=== PATIENT | female | born 1980 | race African-American/Black ===

== ENCOUNTER 2016-06-29 21:33 | Emergency (ER) | payer MEDICARE ==
[~2016-06-29] VITALS: Ht 160 cm; Wt 109.4 kg
[~2016-06-29 21:33] MED LIST: ACETTAB3 OR; BENADRYL25 MG OR; BISAC-EVAC10 MG RE; BUSPAR5 MG PO; CELEXA20 M1 OR; CELEXA40 M1 OR; CEPHALEXIN500 M1 OR; CIPRO500 MG OR; CIPROFLOXACN500 MG PO; CLARITHROMYC500 M2 PO; COLACE100 MG OR; CYCLOBENZAPR10 MG PO; E.E.S. 400400 MG OR; FIORICET PO; FLEXERIL PO; FUROSEMIDE20 MG OR; GEODON80 MG OR; HALDOL5 MG; HALDOL5 MG OR; K-DUR/KLOR-CON10 ME1 OR; KEFLEX500 MG OR; KLOR-CON 1010 ME1 OR; LAMICTAL100 M1 PO; LAMOTRIGINE25 M1 PO; LASIX20 MG OR; LORTAB 10 OR; LORTAB 5 OR; LORTAB5 PO; LOVENOX 4040 MG/0.4 SC; MACROBID100 MG OR; METFORMIN500 MG PO; MILK OF MAG2 OR; MIRTAZAPINE15 MG PO; NAPROSYN500 MG PO; NUCYNTA75 MG OR; PAROXETINE20 MG PO; PEPCID20 MG OR; PERCOCET 5/325M1 TAB OR; PRAVASTATIN SOD20 MG PO; PREVACID30 M3 PO; PRILOSEC OTC20 MG OR; PYRIDIUM200 MG OR; RISPERDAL0.5 MG PO; TORADOL OR; TORADOL PO; TRAZODONE100 MG OR; TRILEPTAL300 M1 OR; ULTRAM50 M1 PO; ULTRAM50 MG OR; ULTRAM50 MG PO; ZOFRAN ODT8 MG PO; ZOFRAN ODT8 MG SL; [UNRECOGNIZED DRUG - CODE] OR
[2016-06-29 22:33] LABS: URINE BILIRUBIN - DIPSTICK NEGATIVE (NEGATIVE); URINE BLOOD DIPSTICK TRACE-INTACT (NEGATIVE); URINE CLARITY CLEAR; URINE COLOR YELLOW; URINE GLUCOSE - DIPSTICK NEGATIVE (NEGATIVE); URINE KETONE NEGATIVE (NEGATIVE); URINE LEUK ESTERASE NEGATIVE (NEGATIVE); URINE NITRITE - DIPSTICK NEGATIVE (Negative); URINE PH 5.5 (4.5-8.0); URINE PROTEIN - DIPSTICK NEGATIVE (NEG-TRACE); URINE SPECIFIC GRAVITY 1.025
[2016-06-29 22:38] LABS: HEMATOCRIT 35.6 % (37.0-47.0); HEMOGLOBIN 12.5 g/dl (12.0-16.0); IMMATURE GRANULOCYTES 0.4 % (0.0-1.0); MEAN CELL VOLUME 70.1 fL CALC (80.0-100.0); MEAN CORPUSCULAR HGB 24.6 pG CALC (26.0-32.0); MEAN CORPUSCULAR HGB CONC 35.1 g/L CALC (32.0-36.0); NEUT# 10.36 thou/uL (2.00-7.15); RED BLOOD COUNT 5.08 mill/uL (4.20-5.60); RED CELL DISTRI WIDTH 15.2 % (11.5-15.5)
[2016-06-29 23:00] LABS: ALBUMIN 4.4 g/dL (3.2-5.0); ALKALINE PHOSPHATASE 128 u/l (38-126); AMYLASE 70 u/l (30-110); ANION GAP 19 (6-22 (CALC)); BILIRUBIN, TOTAL 0.5 mg/dL (0.0-1.4); BUN 10 mg/dL (7-17); BUN/CREATININE RATIO 13 (12-20 (CALC)); CALCIUM 9.2 mg/dL (8.4-10.2); CARBON DIOXIDE 24 mmol/l (22-30); CHLORIDE 102 mmol/l (95-108); CREATININE 0.8 mg/dL (0.5-1.0); GFR > 60 ML/MIN (>=60 (CALC)); GFR FOR AFR.AMER. > 60 ML/MIN (>=60 (CALC)); GLUCOSE 118 mg/dL (65-105); LIPASE 98 u/l (23-300); POTASSIUM 4.3 mmol/l (3.5-5.1); SGOT/AST 19 u/l (14-36); SGPT/ALT 21 u/l (9-52); SODIUM 140 mmol/l (137-146); TOTAL PROTEIN 8.8 g/dL (6.3-8.2)
[2016-06-30 00:50] VITALS: BP 132/77
[2016-06-30] MEDS ORDERED: TORADOL PO (01:40)
== END 2016-06-30 02:05 | disposition home or self-care (01) ==
LOC: ED 21:33
PROVIDERS: Emergency Medicine
DX: G89.29 Other chronic pain (principal); F32.9 Major depressive disorder, single episode, unspecified
CPT/HCPCS: Q9967

== ENCOUNTER 2017-04-01 18:10 | Emergency (ER) | payer MEDICARE ==
[~2017-04-01] VITALS: Ht 160 cm; Wt 106.8 kg
[2017-04-01] MEDS ORDERED: LISINOPRIL5 MG PO (18:19)
[2017-04-01 18:44] LABS: HEMATOCRIT 37.1 % (37.0-47.0); HEMOGLOBIN 12.7 g/dl (12.0-16.0); IMMATURE GRANULOCYTES 0.5 % (0.0-1.0); MEAN CELL VOLUME 72.6 fL CALC (80.0-100.0); MEAN CORPUSCULAR HGB 24.9 pG CALC (26.0-32.0); MEAN CORPUSCULAR HGB CONC 34.2 g/L CALC (32.0-36.0); NEUT# 10.74 thou/uL (2.00-7.15); RED BLOOD COUNT 5.11 mill/uL (4.20-5.60); RED CELL DISTRI WIDTH 14.8 % (11.5-15.5)
[2017-04-01 18:48] LABS: BARBITURATES NEGATIVE (NEGATIVE); COCAINE NEGATIVE (NEGATIVE); METHADONE NEGATIVE (NEGATIVE); OXCYCODONE NEGATIVE (NEGATIVE); TETRAHYDROCANNABIONOL NEGATIVE (NEGATIVE); TRICYLIC ANTIDEPRESSANTS NEGATIVE (NEGATIVE); URINE BILIRUBIN - DIPSTICK NEGATIVE (NEGATIVE); URINE BLOOD DIPSTICK NEGATIVE (NEGATIVE); URINE CLARITY CLEAR; URINE COLOR YELLOW; URINE GLUCOSE - DIPSTICK NEGATIVE (NEGATIVE); URINE KETONE NEGATIVE (NEGATIVE); URINE LEUK ESTERASE NEGATIVE (NEGATIVE); URINE NITRITE - DIPSTICK NEGATIVE (Negative); URINE PROTEIN - DIPSTICK NEGATIVE (NEG-TRACE); URINE SPECIFIC GRAVITY >=1.030; URINE UROBILINOGEN - DIPSTICK 0.2 E.U./dL (0.2)
[2017-04-01 19:00] LABS: ALBUMIN 4.6 g/dL (3.2-5.0); ALKALINE PHOSPHATASE 145 u/l (38-126); ANION GAP 18 (6-22 (CALC)); BILIRUBIN, TOTAL 0.4 mg/dL (0.0-1.4); BUN 16 mg/dL (7-17); BUN/CREATININE RATIO 22 (12-20 (CALC)); CALCIUM 9.9 mg/dL (8.4-10.2); CARBON DIOXIDE 22 mmol/l (22-30); CHLORIDE 108 mmol/l (95-108); CREATININE 0.7 mg/dL (0.5-1.0); GFR > 60 ML/MIN (>=60 (CALC)); GFR FOR AFR.AMER. > 60 ML/MIN (>=60 (CALC)); GLUCOSE 120 mg/dL (65-105); LIPASE 141 u/l (23-300); POTASSIUM 4.3 mmol/l (3.5-5.1); SGOT/AST 14 u/l (14-36); SGPT/ALT 24 u/l (9-52); SODIUM 144 mmol/l (137-146); TOTAL PROTEIN 8.2 g/dL (6.3-8.2)
[2017-04-01] MEDS ORDERED: METRONIDAZOL500 MG PO (19:03)
[2017-04-01] MEDS ORDERED: TETRACYCLINE H250 MG PO (19:03)
[2017-04-01] MEDS ORDERED: BENTYL20 MG PO (20:22)
[2017-04-01] MEDS ORDERED: TORADOL PO (20:22)
[2017-04-01 20:39] VITALS: BP 148/78
== END 2017-04-01 20:41 | disposition home or self-care (01) ==
LOC: ED 18:10
PROVIDERS: Emergency Medicine
DX: R10.33 Periumbilical pain (principal); R10.30 Lower abdominal pain, unspecified; R50.9 Fever, unspecified; G89.29 Other chronic pain

== ENCOUNTER 2017-07-19 21:11 | Emergency (ER) | payer MEDICARE ==
[~2017-07-19] VITALS: Ht 160 cm; Wt 100.2 kg
[~2017-07-19 21:11] MED LIST changes: +BENTYL20 MG PO; +LISINOPRIL5 MG PO; +METRONIDAZOL500 MG PO; +TETRACYCLINE H250 MG PO
[2017-07-19 22:19] LABS: URINE BILIRUBIN - DIPSTICK NEGATIVE (NEGATIVE); URINE BLOOD DIPSTICK NEGATIVE (NEGATIVE); URINE COLOR YELLOW; URINE GLUCOSE - DIPSTICK NEGATIVE (NEGATIVE); URINE KETONE NEGATIVE (NEGATIVE); URINE NITRITE - DIPSTICK NEGATIVE (Negative); URINE PH 6.5 (4.5-8.0); URINE PROTEIN - DIPSTICK 30 mg/dL (NEG-TRACE); URINE SPECIFIC GRAVITY >=1.030; URINE UROBILINOGEN - DIPSTICK 0.2 E.U./dL (0.2)
[2017-07-19 22:20] LABS: URINE CLARITY SL CLOUDY; URINE LEUK ESTERASE MODERATE (NEGATIVE)
[2017-07-19 22:22] LABS: URINE RBC 0-2 RBC/hpf (0-5); URINE SQUAMOUS EPITHELIAL CELL MODERATE EPI/hpf (0-FEW)
[2017-07-19] MEDS ORDERED: MACROBID100 MG PO (23:28)
[2017-07-20 00:44] VITALS: BP 141/89
== END 2017-07-20 00:47 | disposition home or self-care (01) ==
LOC: ED 21:11
PROVIDERS: Family Medicine
DX: R10.31 Right lower quadrant pain (principal); Z33.1 Pregnant state, incidental; R50.9 Fever, unspecified; R11.0 Nausea

== ENCOUNTER 2017-10-18 14:56 | Emergency (ER) | payer MEDICARE, MEDICAID ==
[~2017-10-18] VITALS: Ht 160 cm; Wt 85.0 kg
[~2017-10-18 14:56] MED LIST changes: +MACROBID100 MG PO
[2017-10-18 15:53] LABS: HEMOGLOBIN 12.2 g/dl (12.0-16.0); IMMATURE GRANULOCYTES 0.4 % (0.0-1.0); MEAN CELL VOLUME 73.5 fL CALC (80.0-100.0); MEAN CORPUSCULAR HGB 25.6 pG CALC (26.0-32.0); MEAN CORPUSCULAR HGB CONC 34.9 g/L CALC (32.0-36.0); NEUT# 7.39 thou/uL (2.00-7.15); RED BLOOD COUNT 4.76 mill/uL (4.20-5.60); RED CELL DISTRI WIDTH 14.8 % (11.5-15.5)
[2017-10-18 16:11] LABS: ALBUMIN 3.8 g/dL (3.2-5.0); ALKALINE PHOSPHATASE 112 u/l (38-126); ANION GAP 12 (6-22 (CALC)); BILIRUBIN, TOTAL 0.4 mg/dL (0.0-1.4); BUN 8 mg/dL (7-17); BUN/CREATININE RATIO 13 (12-20 (CALC)); CARBON DIOXIDE 25 mmol/l (22-30); CHLORIDE 107 mmol/l (95-108); CREATININE 0.7 mg/dL (0.5-1.0); GFR > 60 ML/MIN (>=60 (CALC)); GFR FOR AFR.AMER. > 60 ML/MIN (>=60 (CALC)); POTASSIUM 3.9 mmol/l (3.5-5.1); SGOT/AST 11 u/l (14-36); SGPT/ALT 23 u/l (9-52); SODIUM 140 mmol/l (137-146); TOTAL PROTEIN 7.3 g/dL (6.3-8.2)
[2017-10-18 16:34] LABS: PROTHROMBIN TIME 11.1 SECONDS (9.0-12.5)
[2017-10-18 16:43] LABS: URINE BLOOD DIPSTICK SMALL (NEGATIVE); URINE COLOR YELLOW; URINE GLUCOSE - DIPSTICK NEGATIVE (NEGATIVE); URINE KETONE NEGATIVE (NEGATIVE); URINE LEUK ESTERASE TRACE (NEGATIVE); URINE PH 6.5 (4.5-8.0); URINE PROTEIN - DIPSTICK TRACE mg/dL (NEG-TRACE); URINE SPECIFIC GRAVITY 1.025; URINE UROBILINOGEN - DIPSTICK >=8.0 E.U./dL (0.2)
[2017-10-18 16:44] LABS: URINE BILIRUBIN - DIPSTICK NEGATIVE (NEGATIVE); URINE CLARITY HAZY; URINE NITRITE - DIPSTICK POSITIVE (Negative)
[2017-10-18 16:46] LABS: BARBITURATES NEGATIVE (NEGATIVE); COCAINE POSITIVE (NEGATIVE); METHADONE NEGATIVE (NEGATIVE); OXCYCODONE NEGATIVE (NEGATIVE); TETRAHYDROCANNABIONOL POSITIVE (NEGATIVE); TRICYLIC ANTIDEPRESSANTS NEGATIVE (NEGATIVE)
[2017-10-18 16:52] LABS: URINE BACTERIA MANY hpf; URINE SQUAMOUS EPITHELIAL CELL FEW EPI/hpf (0-FEW)
[2017-10-18] MEDS ORDERED: BACTRIM DS1 TAB PO (16:56)
[2017-10-18] MEDS ORDERED: TORADOL PO (16:56)
[2017-10-18 17:18] VITALS: BP 151/80
== END 2017-10-18 17:23 | disposition home or self-care (01) ==
LOC: ED 14:56
PROVIDERS: Emergency Medicine
DX: F41.9 Anxiety disorder, unspecified (principal); N39.0 Urinary tract infection, site not specified; B96.20 Unspecified Escherichia coli [E. coli] as the cause of diseases classified elsewhere; F14.10 Cocaine abuse, uncomplicated; F15.10 Other stimulant abuse, uncomplicated

== ENCOUNTER 2018-08-31 05:41 | Emergency (ER) | payer MEDICARE, MEDICAID ==
[~2018-08-31] VITALS: Ht 160 cm; Wt 100.0 kg
[~2018-08-31 05:41] MED LIST changes: +BACTRIM DS1 TAB PO
[2018-08-31] MEDS ORDERED: NEURONTIN300 MG PO (06:00)
[2018-08-31 06:31] LABS: HEMATOCRIT 37.4 % (37.0-47.0); HEMOGLOBIN 12.8 g/dl (12.0-16.0); IMMATURE GRANULOCYTES 0.5 % (0.0-5.0); MEAN CELL VOLUME 74.4 fL CALC (80.0-100.0); MEAN CORPUSCULAR HGB 25.4 pG CALC (26.0-32.0); MEAN CORPUSCULAR HGB CONC 34.2 g/L CALC (32.0-36.0); NEUT# 5.18 thou/uL (2.00-7.15); RED BLOOD COUNT 5.03 mill/uL (4.20-5.60); RED CELL DISTRI WIDTH 14.7 % (11.5-15.5)
[2018-08-31 06:33] LABS: URINE BILIRUBIN - DIPSTICK NEGATIVE (NEGATIVE); URINE BLOOD DIPSTICK NEGATIVE (NEGATIVE); URINE COLOR YELLOW; URINE GLUCOSE - DIPSTICK NEGATIVE (NEGATIVE); URINE KETONE NEGATIVE (NEGATIVE); URINE LEUK ESTERASE NEGATIVE (NEGATIVE); URINE NITRITE - DIPSTICK NEGATIVE (Negative); URINE PH 5.5 (4.5-8.0); URINE PROTEIN - DIPSTICK NEGATIVE (NEG-TRACE); URINE SPECIFIC GRAVITY >=1.030; URINE UROBILINOGEN - DIPSTICK 0.2 E.U./dL (0.2)
[2018-08-31 06:51] LABS: URINE BACTERIA RARE hpf; URINE CALCIUM OXALATE CRYSTALS FEW lpf; URINE MUCUS FEW hpf (NONE-FEW); URINE SQUAMOUS EPITHELIAL CELL RARE EPI/hpf (0-FEW); URINE WBC 0-2 WBC/hpf (0-5)
[2018-08-31 06:55] LABS: ALBUMIN 3.8 g/dL (3.2-5.0); ALKALINE PHOSPHATASE 174 u/l (38-126); AMYLASE 48 u/l (30-110); BILIRUBIN, TOTAL 0.5 mg/dL (0.0-1.4); BUN 8 mg/dL (7-17); BUN/CREATININE RATIO 15 (12-20 (CALC)); CHLORIDE 107 mmol/l (95-108); CREATININE 0.6 mg/dL (0.5-1.0); GFR > 60 ML/MIN (>=60 (CALC)); GFR FOR AFR.AMER. > 60 ML/MIN (>=60 (CALC)); LIPASE 115 u/l (23-300); POTASSIUM 4.2 mmol/l (3.5-5.1); SGOT/AST 13 u/l (14-36); SODIUM 141 mmol/l (137-146)
[2018-08-31 06:58] LABS: ANION GAP 12 (6-22 (CALC)); CARBON DIOXIDE 26 mmol/l (22-30)
[2018-08-31] MEDS ORDERED: PREVACID30 M3 PO (09:04)
[2018-08-31 09:10] VITALS: BP 146/92
[2018-08-31] MEDS ORDERED: PRILOSEC20 MG PO ×2 (09:13→09:28)
[2018-08-31] MEDS ORDERED: CLARITHROMYC500 M2 PO ×2 (09:13→09:28)
== END 2018-08-31 09:27 | disposition home or self-care (01) ==
LOC: ED 05:41
PROVIDERS: Family Medicine
DX: K29.70 Gastritis, unspecified, without bleeding (principal); B96.81 Helicobacter pylori [H. pylori] as the cause of diseases classified elsewhere
CPT/HCPCS: Q9967

== ENCOUNTER 2018-10-01 03:56 | Emergency (ER) | payer MEDICARE, MEDICAID ==
[~2018-10-01] VITALS: Ht 160 cm; Wt 81.8 kg
[~2018-10-01 03:56] MED LIST changes: +NEURONTIN300 MG PO; +PRILOSEC20 MG PO
[2018-10-01 05:33] LABS: HEMATOCRIT 38.3 % (37.0-47.0); IMMATURE GRANULOCYTES 0.9 % (0.0-5.0); MEAN CELL VOLUME 74.4 fL CALC (80.0-100.0); MEAN CORPUSCULAR HGB 25.2 pG CALC (26.0-32.0); MEAN CORPUSCULAR HGB CONC 33.9 g/L CALC (32.0-36.0); NEUT# 16.33 thou/uL (2.00-7.15); RED BLOOD COUNT 5.15 mill/uL (4.20-5.60); RED CELL DISTRI WIDTH 14.3 % (11.5-15.5)
[2018-10-01 05:41] LABS: ALBUMIN 4.4 g/dL (3.2-5.0); ALKALINE PHOSPHATASE 120 u/l (38-126); AMYLASE 92 u/l (30-110); ANION GAP 14 (6-22 (CALC)); BILIRUBIN, TOTAL 0.6 mg/dL (0.0-1.4); BUN 8 mg/dL (7-17); BUN/CREATININE RATIO 15 (12-20 (CALC)); CARBON DIOXIDE 28 mmol/l (22-30); CHLORIDE 101 mmol/l (95-108); CREATININE 0.6 mg/dL (0.5-1.0); GFR > 60 ML/MIN (>=60 (CALC)); GFR FOR AFR.AMER. > 60 ML/MIN (>=60 (CALC)); LIPASE 220 u/l (23-300); POTASSIUM 4.3 mmol/l (3.5-5.1); SODIUM 138 mmol/l (137-146); TOTAL PROTEIN 8.2 g/dL (6.3-8.2)
[2018-10-01 05:42] LABS: SGOT/AST 47 u/l (14-36)
[2018-10-01 05:43] LABS: URINE BLOOD DIPSTICK NEGATIVE (NEGATIVE); URINE COLOR YELLOW; URINE GLUCOSE - DIPSTICK NEGATIVE (NEGATIVE); URINE KETONE 15 mg/dL (NEGATIVE); URINE LEUK ESTERASE NEGATIVE (NEGATIVE); URINE NITRITE - DIPSTICK NEGATIVE (Negative); URINE PROTEIN - DIPSTICK NEGATIVE (NEG-TRACE); URINE SPECIFIC GRAVITY >=1.030; URINE UROBILINOGEN - DIPSTICK 0.2 E.U./dL (0.2)
[2018-10-01 05:51] LABS: URINE BILIRUBIN - DIPSTICK SMALL (NEGATIVE)
[2018-10-01 08:05] VITALS: BP 136/76
== END 2018-10-01 10:25 | disposition other institution (70) ==
LOC: ED 03:56
PROVIDERS: Emergency Medicine
DX: R10.33 Periumbilical pain (principal); R10.13 Epigastric pain; R11.2 Nausea with vomiting, unspecified; Z98.890 Other specified postprocedural states; Z98.84 Bariatric surgery status
CPT/HCPCS: S0073

== ENCOUNTER 2019-02-23 08:33 | Emergency (ER) | payer MEDICARE, MEDICAID ==
[~2019-02-23] VITALS: Ht 160 cm; Wt 68.0 kg
[2019-02-23] MEDS ORDERED: LORTAB 1010 MG PO (09:37)
[2019-02-23 09:40] VITALS: BP 125/77
== END 2019-02-23 09:49 | disposition home or self-care (01) ==
LOC: ED 08:33
DX: S83.91XA Sprain of unspecified site of right knee, initial encounter (principal); Z96.653 Presence of artificial knee joint, bilateral

== ENCOUNTER 2019-05-06 | Emergency (ER) | payer MEDICARE, MEDICAID ==
[~2019-05-06] MED LIST changes: +LORTAB 1010 MG PO
[2019-05-06 17:03] LABS: HEMATOCRIT 38.3 % (37.0-47.0); IMMATURE GRANULOCYTES 0.2 % (0.0-5.0); MEAN CELL VOLUME 73.1 fL CALC (80.0-100.0); MEAN CORPUSCULAR HGB 24.8 pG CALC (26.0-32.0); MEAN CORPUSCULAR HGB CONC 33.9 g/L CALC (32.0-36.0); NEUT# 10.38 thou/uL (2.00-7.15); RED BLOOD COUNT 5.24 mill/uL (4.20-5.60); RED CELL DISTRI WIDTH 15.3 % (11.5-15.5)
[2019-05-06 17:17] LABS: ALBUMIN 4.6 g/dL (3.2-5.0); ANION GAP 15 (6-22 (CALC)); BILIRUBIN, TOTAL 0.4 mg/dL (0.0-1.4); BUN 8 mg/dL (7-17); BUN/CREATININE RATIO 17 (12-20 (CALC)); CARBON DIOXIDE 24 mmol/l (22-30); CHLORIDE 104 mmol/l (95-108); CREATININE 0.5 mg/dL (0.5-1.0); GFR > 60 ML/MIN (>=60 (CALC)); GFR FOR AFR.AMER. > 60 ML/MIN (>=60 (CALC)); LIPASE 146 u/l (23-300); POTASSIUM 4.1 mmol/l (3.5-5.1); SGOT/AST 46 u/l (14-36); SODIUM 139 mmol/l (137-146); TOTAL PROTEIN 8.2 g/dL (6.3-8.2)
[2019-05-06 17:18] LABS: ALKALINE PHOSPHATASE 211 u/l (38-126)
[2019-05-06 18:22] LABS: URINE BILIRUBIN - DIPSTICK NEGATIVE (NEGATIVE); URINE BLOOD DIPSTICK NEGATIVE (NEGATIVE); URINE COLOR YELLOW; URINE GLUCOSE - DIPSTICK NEGATIVE (NEGATIVE); URINE KETONE NEGATIVE (NEGATIVE); URINE LEUK ESTERASE NEGATIVE (NEGATIVE); URINE NITRITE - DIPSTICK NEGATIVE (Negative); URINE PROTEIN - DIPSTICK NEGATIVE (NEG-TRACE); URINE SPECIFIC GRAVITY >=1.030
[2020-01-05] MEDS ORDERED: NAPROXEN375 MG PO (12:04)
[2020-01-26] MEDS ORDERED: HYDROCO/APAP1 TA9 PO (12:44)
[2020-01-26] MEDS ORDERED: ZOFRAN4 MG/TAB PO (12:55)
== END 2019-05-06 19:20 | disposition home or self-care (01) ==
PROVIDERS: Family Medicine
DX: R10.31 Right lower quadrant pain (principal); E11.40 Type 2 diabetes mellitus with diabetic neuropathy, unspecified
CPT/HCPCS: Q9967

== ENCOUNTER 2019-06-04 | Emergency (ER) | payer MEDICARE, MEDICAID ==
[2020-01-05] MEDS ORDERED: NAPROXEN375 MG PO (12:04)
== END 2019-06-04 21:20 | disposition left against medical advice (07) ==
DX: R10.31 Right lower quadrant pain (principal); M79.604 Pain in right leg; E11.40 Type 2 diabetes mellitus with diabetic neuropathy, unspecified; Z91.19 Patient's noncompliance with other medical treatment and regimen

== ENCOUNTER 2020-01-05 10:37 | Emergency (ER) | payer MEDICARE, MEDICAID ==
[~2020-01-05] VITALS: Ht 160 cm; Wt 72.7 kg
[2020-01-05] MEDS ORDERED: NAPROXEN375 MG PO ×2 (12:04)
[2020-01-05 12:08] VITALS: BP 136/85
[2020-01-26] MEDS ORDERED: HYDROCO/APAP1 TA9 PO (12:44)
[2020-01-26] MEDS ORDERED: ZOFRAN4 MG/TAB PO (12:55)
== END 2020-01-05 12:15 | disposition home or self-care (01) ==
LOC: ED 10:37
DX: S46.912A Strain of unspecified muscle, fascia and tendon at shoulder and upper arm level, left arm, initial encounter (principal); G62.9 Polyneuropathy, unspecified; X58.XXXA Exposure to other specified factors, initial encounter

== ENCOUNTER 2020-04-23 21:11 | Emergency (ER) | payer MEDICARE, MEDICAID ==
[~2020-04-23] VITALS: Ht 160 cm; Wt 68.0 kg
[~2020-04-23 21:11] MED LIST changes: +HYDROCO/APAP1 TA9 PO; +NAPROXEN375 MG PO; +ZOFRAN4 MG/TAB PO
[2020-04-23] MEDS ORDERED: OXYCODONE30 MG PO (21:24)
[2020-04-23 22:13] LABS: HEMATOCRIT 39.8 % (37.0-47.0); HEMOGLOBIN 13.4 g/dl (12.0-16.0); IMMATURE GRANULOCYTES 0.3 % (0.0-5.0); MEAN CELL VOLUME 73.6 fL CALC (80.0-100.0); MEAN CORPUSCULAR HGB 24.8 pG CALC (26.0-32.0); MEAN CORPUSCULAR HGB CONC 33.7 g/dL CAL (32.0-36.0); NEUT# 18.44 thou/uL (2.00-7.15); RED BLOOD COUNT 5.41 mill/uL (4.20-5.60); RED CELL DISTRI WIDTH 15.5 % (11.5-15.5)
[2020-04-23 22:22] LABS: URINE BILIRUBIN - DIPSTICK NEGATIVE (NEGATIVE); URINE BLOOD DIPSTICK NEGATIVE (NEGATIVE); URINE COLOR YELLOW; URINE GLUCOSE - DIPSTICK NEGATIVE (NEGATIVE); URINE KETONE TRACE mg/dL (NEGATIVE); URINE LEUK ESTERASE NEGATIVE (NEGATIVE); URINE NITRITE - DIPSTICK NEGATIVE (Negative); URINE PH 6.5 (4.5-8.0); URINE PROTEIN - DIPSTICK NEGATIVE (NEG-TRACE)
[2020-04-23 22:36] LABS: ALBUMIN 4.7 g/dL (3.2-5.0); ALKALINE PHOSPHATASE 138 u/l (38-126); AMYLASE 96 u/l (30-110); ANION GAP 13 (6-22 (CALC)); BILIRUBIN, TOTAL 0.7 mg/dL (0.0-1.4); BUN 8 mg/dL (7-17); BUN/CREATININE RATIO 15 (12-20 (CALC)); CARBON DIOXIDE 27 mmol/l (22-30); CHLORIDE 100 mmol/l (95-108); CREATININE 0.6 mg/dL (0.5-1.0); GFR > 60 ML/MIN (>=60 (CALC)); GFR FOR AFR.AMER. > 60 ML/MIN (>=60 (CALC)); LIPASE 86 u/l (23-300); POTASSIUM 4.3 mmol/l (3.5-5.1); SGOT/AST 40 u/l (14-36); SODIUM 136 mmol/l (137-146); TOTAL PROTEIN 8.3 g/dL (6.3-8.2)
[2020-04-23 23:53] VITALS: BP 129/78
[2020-04-24] MEDS ORDERED: MELOXICAM15 MG PO (18:45)
[2020-04-24] MEDS ORDERED: DICLOFENAC SODIUM1 % TOP (18:46)
== END 2020-04-24 00:50 | disposition left against medical advice (07) ==
LOC: ED 21:11
PROVIDERS: Family Medicine
DX: K56.1 Intussusception (principal); E11.9 Type 2 diabetes mellitus without complications; Z98.84 Bariatric surgery status; Z91.19 Patient's noncompliance with other medical treatment and regimen
CPT/HCPCS: Q9967

== ENCOUNTER 2020-04-24 17:49 | Emergency (ER) | payer MEDICARE, MEDICAID ==
[~2020-04-24] VITALS: Ht 160 cm; Wt 68.0 kg
[~2020-04-24 17:49] MED LIST changes: +OXYCODONE30 MG PO
[2020-04-24 18:35] LABS: HEMATOCRIT 37.9 % (37.0-47.0); HEMOGLOBIN 12.8 g/dl (12.0-16.0); IMMATURE GRANULOCYTES 0.3 % (0.0-5.0); MEAN CORPUSCULAR HGB CONC 33.8 g/dL CAL (32.0-36.0); NEUT# 8.15 thou/uL (2.00-7.15); RED BLOOD COUNT 5.12 mill/uL (4.20-5.60); RED CELL DISTRI WIDTH 15.6 % (11.5-15.5)
[2020-04-24 18:35] LABS: URINE BILIRUBIN - DIPSTICK NEGATIVE (NEGATIVE); URINE BLOOD DIPSTICK NEGATIVE (NEGATIVE); URINE COLOR YELLOW; URINE GLUCOSE - DIPSTICK NEGATIVE (NEGATIVE); URINE KETONE NEGATIVE (NEGATIVE); URINE LEUK ESTERASE NEGATIVE (NEGATIVE); URINE NITRITE - DIPSTICK NEGATIVE (Negative); URINE PROTEIN - DIPSTICK NEGATIVE (NEG-TRACE); URINE SPECIFIC GRAVITY >=1.030; URINE UROBILINOGEN - DIPSTICK 0.2 E.U./dL (0.2)
[2020-04-24] MEDS ORDERED: MELOXICAM15 MG PO (18:45)
[2020-04-24] MEDS ORDERED: DICLOFENAC SODIUM1 % TOP (18:46)
[2020-04-24 18:56] LABS: ALBUMIN 4.5 g/dL (3.2-5.0); ALKALINE PHOSPHATASE 113 u/l (38-126); AMYLASE 89 u/l (30-110); ANION GAP 13 (6-22 (CALC)); BILIRUBIN, TOTAL 0.6 mg/dL (0.0-1.4); BUN 13 mg/dL (7-17); BUN/CREATININE RATIO 24 (12-20 (CALC)); CARBON DIOXIDE 24 mmol/l (22-30); CHLORIDE 105 mmol/l (95-108); CREATININE 0.6 mg/dL (0.5-1.0); GFR > 60 ML/MIN (>=60 (CALC)); GFR FOR AFR.AMER. > 60 ML/MIN (>=60 (CALC)); LIPASE 133 u/l (23-300); POTASSIUM 4.4 mmol/l (3.5-5.1); SGOT/AST 26 u/l (14-36); SODIUM 138 mmol/l (137-146); TOTAL PROTEIN 8.4 g/dL (6.3-8.2)
[2020-04-24 21:20] VITALS: BP 119/69
== END 2020-04-24 22:03 | disposition home or self-care (01) ==
LOC: ED 17:49
PROVIDERS: Emergency Medicine
DX: R10.84 Generalized abdominal pain (principal); E11.9 Type 2 diabetes mellitus without complications
CPT/HCPCS: Q9967

== ENCOUNTER 2020-06-19 15:49 | Emergency (ER) | payer MEDICARE, MEDICAID ==
[~2020-06-19] VITALS: Ht 160 cm; Wt 72.0 kg
[~2020-06-19 15:49] MED LIST changes: +DICLOFENAC SODIUM1 % TOP; +MELOXICAM15 MG PO
[2020-06-19] MEDS ORDERED: ALPRAZOLAM1 MG PO (16:21)
[2020-06-19 17:39] VITALS: BP 165/106
[2020-06-19] MEDS ORDERED: OFLOXACIN0.3 % OS (18:00)
== END 2020-06-19 18:10 | disposition home or self-care (01) ==
LOC: ED 15:49
DX: S05.02XA Injury of conjunctiva and corneal abrasion without foreign body, left eye, initial encounter (principal); E11.9 Type 2 diabetes mellitus without complications; X58.XXXA Exposure to other specified factors, initial encounter; Z98.84 Bariatric surgery status

== ENCOUNTER 2021-09-17 20:15 | Emergency (ER) | payer MEDICARE, MEDICAID ==
[~2021-09-17] VITALS: Ht 160 cm; Wt 72.0 kg
[~2021-09-17 20:15] MED LIST changes: +ALPRAZOLAM1 MG PO; +OFLOXACIN0.3 % OS
[2021-09-17 20:52] LABS: URINE BILIRUBIN - DIPSTICK NEGATIVE (NEGATIVE); URINE BLOOD DIPSTICK NEGATIVE (NEGATIVE); URINE COLOR YELLOW; URINE GLUCOSE - DIPSTICK NEGATIVE (NEGATIVE); URINE KETONE NEGATIVE (NEGATIVE); URINE LEUK ESTERASE NEGATIVE (NEGATIVE); URINE PROTEIN - DIPSTICK NEGATIVE (NEG-TRACE); URINE SPECIFIC GRAVITY 1.025
[2021-09-17 20:56] LABS: URINE NITRITE - DIPSTICK NEGATIVE (Negative)
[2021-09-17 21:18] LABS: HEMATOCRIT 37.5 % (37.0-47.0); HEMOGLOBIN 12.3 g/dl (12.0-16.0); IMMATURE GRANULOCYTES 0.2 % (0.0-5.0); MEAN CELL VOLUME 73.8 fL CALC (80.0-100.0); MEAN CORPUSCULAR HGB 24.2 pG CALC (26.0-32.0); MEAN CORPUSCULAR HGB CONC 32.8 g/dL CAL (32.0-36.0); NEUT# 7.48 thou/uL (2.00-7.15); RED BLOOD COUNT 5.08 mill/uL (4.20-5.60); RED CELL DISTRI WIDTH 15.5 % (11.5-15.5)
[2021-09-17 21:25] LABS: ALBUMIN 4.3 g/dL (3.2-5.0); ANION GAP 13 (6-22 (CALC)); BUN 8 mg/dL (7-17); BUN/CREATININE RATIO 15 (12-20 (CALC)); CARBON DIOXIDE 28 mmol/l (22-30); CHLORIDE 99 mmol/l (95-108); CREATININE 0.6 mg/dL (0.5-1.0); GFR FOR AFR.AMER. > 60 ML/MIN (>=60 (CALC)); GFR OTHER RACES > 60 ML/MIN (>=60 (CALC)); POTASSIUM 3.9 mmol/l (3.5-5.1); SGOT/AST 24 u/l (14-36); SODIUM 136 mmol/l (137-146); TOTAL PROTEIN 8.7 g/dL (6.3-8.2)
[2021-09-17 21:28] LABS: ALKALINE PHOSPHATASE 227 u/l (38-126); BILIRUBIN, TOTAL 0.2 mg/dL (0.0-1.4)
[2021-09-17 21:53] VITALS: BP 156/91
== END 2021-09-17 22:01 | disposition home or self-care (01) ==
LOC: ED 20:15
PROVIDERS: Emergency Medicine
DX: M25.551 Pain in right hip (principal); I10 Essential (primary) hypertension

== ENCOUNTER 2021-11-27 18:40 | Emergency (ER) | payer MEDICARE, MEDICAID ==
[~2021-11-27] VITALS: Ht 160 cm; Wt 76.3 kg
[2021-11-27] VITALS (8 sets, daily range): BP systolic 131–215; BP diastolic 94–124
[2021-11-27] MEDS ORDERED: LORTAB 1010 MG PO (20:52)
== END 2021-11-27 23:15 | disposition home or self-care (01) ==
LOC: ED 18:40
DX: M25.561 Pain in right knee (principal)

== ENCOUNTER 2023-06-01 06:48 | Emergency (ER) | payer MEDICARE, MEDICAID ==
[2023-06-01] VITALS (9 sets, daily range): BP systolic 132–157; BP diastolic 79–112
[~2023-06-01] VITALS: Ht 160 cm; Wt 78.0 kg
[2023-06-01] MEDS ORDERED: oxyCODONE 10MG/APAP 325 MG 1 COMBO TAB PO ONE (07:20)
[2023-06-01] MEDS ORDERED: KETOROLAC TROMETHAMINE 30 MG/ML SDV IM ONE (07:20)
[2023-06-01] MEDS ORDERED: XANAX1 MG PO (07:27)
[2023-06-01] MEDS ORDERED: PERCOCET 5/325M1 TAB PO (08:57)
[2023-06-02] MEDS ORDERED: PEPCID AC10 MG PO (16:38)
[2023-06-02] MEDS ORDERED: FAMOTIDINE20 M1 PO (16:41)
[2023-06-02] MEDS ORDERED: MS CONTIN30 MG PO (16:43)
[2023-06-03] MEDS ORDERED: MECLIZINE25 MG PO (14:28)
[2023-06-03] MEDS ORDERED: ATORVASTATIN CA40 MG PO (14:28)
[2023-06-03] MEDS ORDERED: ONDANSETRON4 MG PO (14:29)
[2023-06-03] MEDS ORDERED: ASPIRIN ADULT L81 M2 PO (14:29)
== END 2023-06-01 09:14 | disposition home or self-care (01) ==
LOC: ED 06:48
DX: M25.561 Pain in right knee (principal); G89.29 Other chronic pain; E11.9 Type 2 diabetes mellitus without complications; Z96.651 Presence of right artificial knee joint

== ENCOUNTER 2024-01-03 15:54 | Emergency (ER) | payer MEDICARE, MEDICAID ==
[~2024-01-03] VITALS: Ht 160 cm; Wt 95.0 kg
[~2024-01-03 15:54] MED LIST changes: +ASPERCREME LIDOCA41 TOP; +ASPIRIN ADULT L81 M2 PO; +ATORVASTATIN CA40 MG PO; +CLEOCIN300 MG PO; +FAMOTIDINE20 M1 PO; +LEVOFLOXACIN500MG PO; +MECLIZINE25 MG PO; +METRONIDAZOLE500 MG PO; +MOTRIN800 MG PO; +MS CONTIN30 MG PO; +ONDANSETRON4 MG PO; +OXYCODONE20 M1 PO; +PEPCID AC10 MG PO; +PERCOCET 5/325M1 TAB PO; +PREDNISONE10 MG PO; +VALTREX500 MG PO; +XANAX1 MG PO
[2024-01-03 16:04] VITALS: BP 161/90
[2024-01-03] MEDS ORDERED: ONDANSETRON 4 MG/TAB ODT PO ONE (16:15)
[2024-01-03] MEDS ORDERED: MORPHINE SULFATE 4 MG/ML VIAL IM ONE (16:15)
[2024-01-03] MEDS ORDERED: PERCOCET 5/325M1 TAB PO (17:16)
[2024-01-03] MEDS ORDERED: MOTRIN800 MG PO (17:16)
[2024-01-03 17:30] VITALS: BP 161/90
== END 2024-01-03 17:27 | disposition home or self-care (01) ==
LOC: ED 15:54
DX: S20.221A Contusion of right back wall of thorax, initial encounter (principal); G89.4 Chronic pain syndrome; E78.5 Hyperlipidemia, unspecified; F11.20 Opioid dependence, uncomplicated; W06.XXXA Fall from bed, initial encounter; Y92.003 Bedroom of unspecified non-institutional (private) residence as the place of occurrence of the external cause

== ENCOUNTER 2024-02-27 08:01 | Emergency (ER) | payer MEDICARE, MEDICAID ==
[~2024-02-27] VITALS: Ht 160 cm; Wt 81.6 kg
[2024-02-27] MEDS ORDERED: MORPHINE SULFATE 4 MG/ML VIAL IV ONE (08:40)
[2024-02-27] MEDS ORDERED: ONDANSETRON 4 MG/TAB ODT PO ONE (08:40)
[2024-02-27] MEDS ORDERED: MORPHINE SULFATE 4 MG/ML VIAL IM ONE ×2 (08:55→12:10)
[2024-02-27 09:03] VITALS: BP 163/87
[2024-02-27 09:16] VITALS: BP 130/84
[2024-02-27 09:23] LABS: BASO% 0.4 % (0-3); EOS% 1.7 % (0-8); HEMATOCRIT 33.1 % (37.0-47.0); IMMATURE GRANULOCYTES 0.2 % (0.0-5.0); MEAN CELL VOLUME 65.2 fL CALC (80.0-100.0); MEAN CORPUSCULAR HGB 21.7 pG CALC (26.0-32.0); MEAN CORPUSCULAR HGB CONC 33.2 g/dL CAL (32.0-36.0); NEUT# 6.54 thou/uL (2.00-7.15); NEUT% 70.7 % (42-76); RED BLOOD COUNT 5.08 mill/uL (4.20-5.60); RED CELL DISTRI WIDTH 19.2 % (11.5-15.5)
[2024-02-27 09:28] LABS: CREATININE 0.5 mg/dL (0.5-1.0); POTASSIUM 4.5 mmol/l (3.5-5.1)
[2024-02-27 09:31] VITALS: BP 143/116
[2024-02-27 10:17] VITALS: BP 130/84
[2024-02-27] MEDS ORDERED: HYDROCO/APAP1 TA9 PO (12:34)
== END 2024-02-27 10:19 | disposition home or self-care (01) ==
LOC: ED 08:01
PROVIDERS: Family Medicine
DX: M17.12 Unilateral primary osteoarthritis, left knee (principal); F11.20 Opioid dependence, uncomplicated; E78.5 Hyperlipidemia, unspecified; Z98.84 Bariatric surgery status; Z96.651 Presence of right artificial knee joint

== ENCOUNTER → 2024-02-27 | Emergency (ER) | payer MEDICARE, MEDICAID | END | disposition home or self-care (01) | LOC: ED 11:11 → LWOBS 11:15 | DX: Z53.21 Procedure and treatment not carried out due to patient leaving prior to being seen by health care provider (principal) ==

== ENCOUNTER 2024-05-05 00:48 | Emergency (ER) | payer MEDICARE, MEDICAID ==
[~2024-05-05] VITALS: Ht 160 cm; Wt 81.6 kg
[2024-05-05 01:18] VITALS: BP 148/103
[2024-05-05 01:34] VITALS: BP 148/103
[2024-05-05] MEDS ORDERED: NAPROXEN 250 MG/TAB PO ONE (01:35)
[2024-05-05] MEDS ORDERED: METHOCARBAMOL 500 MG/TAB PO ONE (01:35)
== END 2024-05-05 01:50 | disposition left against medical advice (07) ==
LOC: ED 00:48
DX: G89.4 Chronic pain syndrome (principal); F11.20 Opioid dependence, uncomplicated; Z76.5 Malingerer [conscious simulation]; Z98.890 Other specified postprocedural states; Z53.29 Procedure and treatment not carried out because of patient's decision for other reasons